=== PATIENT | female | born 1980 | race Hispanic/Latino ===

== ENCOUNTER 2017-03-17 13:01 | Emergency (ER) | payer SELFPAY ==
[2017-03-17] MEDS ORDERED: Fluorescein Opthalmic Strip ONE (14:15)
[2017-03-17] MEDS ORDERED: Proparacaine 0.5% Opth 15 ML BOT ONE (14:15)
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
== END 2017-03-17 15:11 | disposition home or self-care (01) ==
LOC: ERS 13:01
DX: S01.112A Laceration without foreign body of left eyelid and periocular area, initial encounter (principal); Y04.2XXA Assault by strike against or bumped into by another person, initial encounter
CPT/HCPCS: 70450; 70486; 72125

== ENCOUNTER 2017-07-19 17:44 | Emergency (ER) | payer SELFPAY ==
--- NOTE | 2017-07-19 20:48 | RAD ---
PA AND LATERAL CHEST: INDICATIONS: Pleuritic chest pain with cough. COMPARISON: None. FINDINGS: No air space consolidation is evident. There is focal eventration of both hemidiaphragms. No pleura l effusion is evident. Heart size is within normal limits. No acute osseous abnormality is evident. IMPRESSION: No acute abnormality. POS: [facility]
== END 2017-07-19 20:46 | disposition home or self-care (01) ==
LOC: ERS 17:44
DX: J30.9 Allergic rhinitis, unspecified (principal); F17.210 Nicotine dependence, cigarettes, uncomplicated
CPT/HCPCS: 71046; 99406